=== PATIENT | male | born 1970 | race Caucasian/White ===

== ENCOUNTER → 2017-06-24 | Outpatient (CLI) | payer BC ==
[2017-06-24 09:02] LABS: Basophils # (auto) 0.1 uL; Basophils % (auto) 0.9 % (0.0-2.0); Eosinophils # (auto) 0.4 uL; Eosinophils % (auto) 4.5 % (0.0-7.0); Hematocrit 49.6 % (41.0-53.0); Lymphocytes # (auto) 2.1 uL; Lymphocytes % (auto) 22.2 % (10.0-50.0); Mean Corpuscular Hgb Conc. 34.2 g/dL (32.0-36.0); Mean Corpuscular Volume 93.5 fL (80.0-100.0); Monocytes # (auto) 1.2 uL; Monocytes % (auto) 12.9 % (0.0-12.0); Neutrophils # (auto) 5.5 uL; Neutrophils % (auto) 59.5 % (37.0-80.0); Platelet Count (auto) 307 10^3/uL (140-450); Red Blood Cells 5.31 10^6/uL (4.5-5.90); Red Cell Distribution Width 14.4 % (11.8-14.3); White Blood Cell 9.2 10^3/uL (4.4-10.8)
[2017-06-24 09:53] LABS: Albumin 3.6 g/dL (3.4-5.0); BUN/Creatinine Ratio 13.5; Bilirubin, Total 0.4 mg/dL (0.2-1.0); Calcium 8.6 mg/dL (8.5-10.1); Potassium 4.4 mmol/L (3.5-5.1); Total Protein 7.4 g/dL (6.4-8.2)
== END | disposition home or self-care (01) ==
LOC: LAB 08:00
PROVIDERS: ATTEND Physician Assistant
DX: M54.12 Radiculopathy, cervical region (principal); K62.5 Hemorrhage of anus and rectum; Z83.3 Family history of diabetes mellitus; Z72.0 Tobacco use
CPT/HCPCS: 36415; 80053; 80061; 85025

== ENCOUNTER 2018-06-18 13:59 | Emergency (ER) | payer BC ==
[~2018-06-18] VITALS: Ht 167.6 cm; Wt 84.8 kg
[2018-06-18] MEDS ORDERED: SODIUM CHLORIDE 0.9% 1,000 ML IV ONE (14:41)
[2018-06-18 14:54] LABS: Basophils # (auto) 0.1 uL; Basophils % (auto) 0.6 % (0.0-2.0); Eosinophils # (auto) 0.1 uL; Eosinophils % (auto) 0.8 % (0.0-7.0); Hematocrit 51.4 % (41.0-53.0); Hemoglobin 16.9 g/dL (13.5-17.5); Lymphocytes # (auto) 1.5 uL; Lymphocytes % (auto) 14.4 % (10.0-50.0); Mean Corpuscular Hemoglobin 30.8 pg (28.0-32.0); Mean Corpuscular Volume 93.2 fL (80.0-100.0); Monocytes % (auto) 9.4 % (0.0-12.0); Neutrophils # (auto) 7.9 uL; Neutrophils % (auto) 74.8 % (37.0-80.0); Platelet Count (auto) 332 10^3/uL (140-450); Red Blood Cells 5.51 10^6/uL (4.5-5.90); Red Cell Distribution Width 14.1 % (11.8-14.3); White Blood Cell 10.6 10^3/uL (4.4-10.8)
[2018-06-18 15:00] LABS: Alanine Aminotransferase 59 U/L (16-61); Albumin 3.8 g/dL (3.4-5.0); Anion Gap 8 (5-15); Blood Urea Nitrogen 12 mg/dL (7-18); Calcium 8.9 mg/dL (8.5-10.1); Carbon Dioxide 22 mmol/L (21-32); Chloride 110 mmol/L (98-107); Glucose 113 mg/dL (74-106); Potassium 4.1 mmol/L (3.5-5.1); Sodium 140 mmol/L (136-145)
[2018-06-18 15:05] LABS: Alkaline Phosphatase 97 U/L (45-117); Aspartate Aminotransferase 88 U/L (15-37); BUN/Creatinine Ratio 16.7; Bilirubin, Total 0.2 mg/dL (0.2-1.0); GFR African American 150 mL/min; GFR Non-African American 124 mL/min; Total Protein 7.9 g/dL (6.4-8.2)
[2018-06-18 15:07] VITALS: BP 134/75
[2018-06-18 15:18] LABS: INR 0.88 (0.9-1.15); Partial Thromboplastin Time 29.2 sec (23.78-33.04); Prothrombin Time 9.5 sec (9.27-12.13)
== END 2018-06-18 18:57 | disposition home or self-care (01) ==
LOC: ER 13:59
DX: M54.2 Cervicalgia (principal); F17.210 Nicotine dependence, cigarettes, uncomplicated; F12.10 Cannabis abuse, uncomplicated
CPT/HCPCS: 36415; 70450; 71046; 80053; 82962; 83735; 84443; 84484; 85025; 85379; 85610; 85730; 93005; 94761; 96360; 99284; J7030

== ENCOUNTER → 2018-07-18 | Outpatient (CLI) | payer BC | END | disposition home or self-care (01) | LOC: Rad HDHVI 15:40 | PROVIDERS: ATTEND Internal Medicine Cardiovascular Disease | DX: I07.9 Rheumatic tricuspid valve disease, unspecified (principal) | CPT/HCPCS: 93306 ==

== ENCOUNTER → 2018-08-01 | Outpatient (CLI) | payer BC ==
[~2018-08-01] VITALS: Ht 167.6 cm; Wt 88.5 kg
== END | disposition home or self-care (01) ==
LOC: Rad HDHVI 08:31
PROVIDERS: ATTEND Internal Medicine Cardiovascular Disease
DX: R42 Dizziness and giddiness (principal); E03.9 Hypothyroidism, unspecified; R55 Syncope and collapse; R61 Generalized hyperhidrosis; I49.8 Other specified cardiac arrhythmias; Z79.899 Other long term (current) drug therapy
CPT/HCPCS: 36415; 78452; 83036; 84439; 84443; 93017; 96374; A9500

== ENCOUNTER → 2018-08-22 | Outpatient (CLI) | payer BC ==
[2018-08-22 08:27] LABS: Hematocrit 49.4 % (41.0-53.0); Hemoglobin 16.9 g/dL (13.5-17.5); Mean Corpuscular Hemoglobin 32.1 pg (28.0-32.0); Mean Corpuscular Hgb Conc. 34.3 g/dL (32.0-36.0); Mean Corpuscular Volume 93.6 fL (80.0-100.0); Platelet Count (auto) 311 10^3/uL (140-450); Red Blood Cells 5.28 10^6/uL (4.5-5.90); Red Cell Distribution Width 14.5 % (11.8-14.3); White Blood Cell 15.3 10^3/uL (4.4-10.8)
[2018-08-22 08:34] LABS: Potassium 4.2 mmol/L (3.5-5.1)
[2018-08-22 08:42] LABS: Basophils % (manual) 0 (0.0-2.0); Blast Cells 0; Metamyelocytes % 0; Myelocytes % 0; Promyelocytes % 0; Reactive Lymphocytes 0
[2018-08-22 08:43] LABS: Albumin 3.7 g/dL (3.4-5.0); BUN/Creatinine Ratio 19.3; Bilirubin, Total 0.4 mg/dL (0.2-1.0); Calcium 9.4 mg/dL (8.5-10.1); Total Protein 7.5 g/dL (6.4-8.2)
[2018-08-22 14:53] LABS: Band Neutrophils % (manual) 1; Eosinophils % (manual) 2 (0-7); Lymphocytes % (manual) 19 (10.0-50.0); Monocytes % (manual) 4 (0-12)
== END | disposition home or self-care (01) ==
LOC: LAB 07:34
PROVIDERS: ATTEND Physician Assistant
DX: Z12.5 Encounter for screening for malignant neoplasm of prostate (principal); R07.89 Other chest pain; R00.1 Bradycardia, unspecified; Z72.0 Tobacco use
CPT/HCPCS: 36415; 80053; 80061; 84153; 85007; 85027

== ENCOUNTER 2019-02-16 07:30 | Emergency (ER) | payer BC ==
[~2019-02-16] VITALS: Ht 167.6 cm; Wt 88.5 kg
[2019-02-16] MEDS ORDERED: SODIUM CHLORIDE 0.9% 1,000 ML IVB ONE (07:53)
[2019-02-16] MEDS ORDERED: ONDANSETRON HCL 4 MG/2 ML VIAL IV ONE (08:00)
[2019-02-16] MEDS ORDERED: HYDROmorphone HCL 2 MG/ML VL IV ONE (08:00)
[2019-02-16 08:12] LABS: Basophils # (auto) 0.1 uL; Basophils % (auto) 0.8 % (0.0-2.0); Eosinophils # (auto) 0.2 uL; Eosinophils % (auto) 2.4 % (0.0-7.0); Hematocrit 49.7 % (41.0-53.0); Lymphocytes # (auto) 1.9 uL; Lymphocytes % (auto) 17.9 % (10.0-50.0); Mean Corpuscular Hemoglobin 31.8 pg (28.0-32.0); Mean Corpuscular Hgb Conc. 34.2 g/dL (32.0-36.0); Mean Corpuscular Volume 93.1 fL (80.0-100.0); Monocytes # (auto) 1.3 uL; Monocytes % (auto) 12.4 % (0.0-12.0); Neutrophils # (auto) 6.9 uL; Neutrophils % (auto) 66.5 % (37.0-80.0); Platelet Count (auto) 317 10^3/uL (140-450); Red Blood Cells 5.34 10^6/uL (4.5-5.90); Red Cell Distribution Width 14.2 % (11.8-14.3); White Blood Cell 10.3 10^3/uL (4.4-10.8)
[2019-02-16 08:32] LABS: Albumin 3.8 g/dL (3.4-5.0); Calcium 9.1 mg/dL (8.5-10.1); Magnesium 2.2 mg/dL (1.6-2.6)
[2019-02-16 08:37] LABS: Bilirubin, Total 0.5 mg/dL (0.2-1.0); Total Protein 7.8 g/dL (6.4-8.2)
[2019-02-16 10:37] LABS: Urine Bacteria NONE SEEN /hpf (None Seen); Urine Blood Negative /uL (Negative); Urine Hyaline Cast FEW /lpf (0 - 2); Urine Mucus FEW (None Seen); Urine Specific Gravity 1.016 (1.001-1.035); Urine WBC 1 /hpf (0 - 3)
[2019-02-16 11:29] VITALS: BP 117/64
== END 2019-02-16 11:29 | disposition home or self-care (01) ==
LOC: ER 07:30
DX: R10.13 Epigastric pain (principal); R11.2 Nausea with vomiting, unspecified; I10 Essential (primary) hypertension; F17.210 Nicotine dependence, cigarettes, uncomplicated
CPT/HCPCS: 36415; 74176; 76705; 80053; 81001; 82150; 83690; 83735; 85025; 93005; 96361; 96374; 96375; 99284; J1170; J2405; J7030

== ENCOUNTER 2019-02-28 20:53 | Emergency (ER) | payer BC ==
[~2019-02-28] VITALS: Ht 167.6 cm; Wt 77.6 kg
[2019-02-28 22:14] VITALS: BP 137/82
[2019-03-01 00:23] LABS: Basophils # (auto) 0.1 uL; Basophils % (auto) 0.9 % (0.0-2.0); Eosinophils # (auto) 0.4 uL; Eosinophils % (auto) 3.3 % (0.0-7.0); Hematocrit 51.8 % (41.0-53.0); Hemoglobin 17.5 g/dL (13.5-17.5); Lymphocytes # (auto) 2.2 uL; Lymphocytes % (auto) 19.9 % (10.0-50.0); Mean Corpuscular Hemoglobin 31.6 pg (28.0-32.0); Mean Corpuscular Hgb Conc. 33.8 g/dL (32.0-36.0); Mean Corpuscular Volume 93.5 fL (80.0-100.0); Monocytes # (auto) 1.1 uL; Monocytes % (auto) 10.4 % (0.0-12.0); Neutrophils # (auto) 7.1 uL; Neutrophils % (auto) 65.5 % (37.0-80.0); Platelet Count (auto) 302 10^3/uL (140-450); Red Blood Cells 5.54 10^6/uL (4.5-5.90); Red Cell Distribution Width 13.9 % (11.8-14.3); White Blood Cell 10.9 10^3/uL (4.4-10.8)
[2019-03-01 00:39] LABS: Albumin 3.5 g/dL (3.4-5.0); Anion Gap 7 (5-15); Blood Urea Nitrogen 12 mg/dL (7-18); Calcium 8.8 mg/dL (8.5-10.1); Carbon Dioxide 22 mmol/L (21-32); Chloride 110 mmol/L (98-107); Glucose 104 mg/dL (74-106); Magnesium 2.4 mg/dL (1.6-2.6); Potassium 3.8 mmol/L (3.5-5.1); Sodium 139 mmol/L (136-145)
[2019-03-01 00:41] LABS: Alanine Aminotransferase 27 U/L (16-61); Aspartate Aminotransferase 14 U/L (15-37); GFR African American 122 mL/min; GFR Non-African American 101 mL/min
[2019-03-01 00:46] LABS: Alkaline Phosphatase 93 U/L (45-117); Bilirubin, Total 0.3 mg/dL (0.2-1.0); Total Protein 7.8 g/dL (6.4-8.2)
== END 2019-03-01 02:58 | disposition left against medical advice (07) ==
LOC: ER 20:55
DX: R07.9 Chest pain, unspecified (principal); R10.13 Epigastric pain; R11.2 Nausea with vomiting, unspecified; R19.7 Diarrhea, unspecified; Z53.21 Procedure and treatment not carried out due to patient leaving prior to being seen by health care provider
CPT/HCPCS: 36415; 71045; 74176; 80053; 83735; 84484; 85025; 93005

== ENCOUNTER → 2020-01-20 | Outpatient (CLI) | payer BC ==
[2020-01-20 08:15] LABS: Basophils # (auto) 0.1 10 ^3/uL (0-0.2); Eosinophils # (auto) 0.3 10 ^3/uL (0-0.8); Eosinophils % (auto) 2.3 % (0.0-7.0); Hematocrit 51.7 % (41.0-53.0); Hemoglobin 16.8 g/dL (13.5-17.5); Lymphocytes # (auto) 2.2 10 ^3/uL (0.4-5.4); Lymphocytes % (auto) 18.9 % (10.0-50.0); Mean Corpuscular Hemoglobin 30.1 pg (28.0-32.0); Mean Corpuscular Hgb Conc. 32.6 g/dL (32.0-36.0); Mean Corpuscular Volume 92.4 fL (80.0-100.0); Monocytes # (auto) 1.4 10 ^3/uL (0-1.3); Monocytes % (auto) 12.6 % (0.0-12.0); Neutrophils # (auto) 7.4 10 ^3/uL (1.6-8.6); Neutrophils % (auto) 65.2 % (37.0-80.0); Nucleated Red Blood Cells % 0.1 %; Platelet Count (auto) 331 10^3/uL (140-450); Red Blood Cells 5.59 10^6/uL (4.5-5.90); Red Cell Distribution Width 14.2 % (11.8-14.3); White Blood Cell 11.4 10^3/uL (4.4-10.8)
[2020-01-20 08:42] LABS: Potassium 4.6 mmol/L (3.5-5.1)
[2020-01-20 08:56] LABS: Albumin 3.8 g/dL (3.4-5.0); BUN/Creatinine Ratio 14.3; Bilirubin, Total 0.5 mg/dL (0.2-1.0); Calcium 9.4 mg/dL (8.5-10.1); Total Protein 7.9 g/dL (6.4-8.2)
== END | disposition home or self-care (01) ==
LOC: LAB 07:59
PROVIDERS: ATTEND Physician Assistant
DX: K21.9 Gastro-esophageal reflux disease without esophagitis (principal); I47.1 Supraventricular tachycardia; K92.1 Melena; R91.8 Other nonspecific abnormal finding of lung field; Z72.0 Tobacco use
CPT/HCPCS: 36415; 80053; 80061; 85025

== ENCOUNTER → 2020-02-25 | Outpatient (CLI) | payer BC ==
[2020-02-25 12:25] LABS: Basophils # (auto) 0.1 10 ^3/uL (0-0.2); Basophils % (auto) 0.7 % (0.0-2.0); Eosinophils # (auto) 0.2 10 ^3/uL (0-0.8); Eosinophils % (auto) 2.6 % (0.0-7.0); Hemoglobin 16.7 g/dL (13.5-17.5); Lymphocytes # (auto) 2.1 10 ^3/uL (0.4-5.4); Lymphocytes % (auto) 22.9 % (10.0-50.0); Mean Corpuscular Hemoglobin 32.3 pg (28.0-32.0); Mean Corpuscular Hgb Conc. 35.6 g/dL (32.0-36.0); Mean Corpuscular Volume 90.7 fL (80.0-100.0); Monocytes # (auto) 1.1 10 ^3/uL (0-1.3); Monocytes % (auto) 11.6 % (0.0-12.0); Neutrophils # (auto) 5.8 10 ^3/uL (1.6-8.6); Neutrophils % (auto) 62.2 % (37.0-80.0); Platelet Count (auto) 348 10^3/uL (140-450); Red Blood Cells 5.18 10^6/uL (4.5-5.90); Red Cell Distribution Width 14.2 % (11.8-14.3); White Blood Cell 9.3 10^3/uL (4.4-10.8)
[2020-02-25 12:45] LABS: Calcium 8.9 mg/dL (8.5-10.1); Potassium 4.2 mmol/L (3.5-5.1)
[2020-02-25 12:49] LABS: BUN/Creatinine Ratio 10.7; Bilirubin, Total 0.3 mg/dL (0.2-1.0); Total Protein 8.2 g/dL (6.4-8.2)
== END | disposition home or self-care (01) ==
LOC: LAB 12:02
DX: I47.1 Supraventricular tachycardia (principal); R00.2 Palpitations
CPT/HCPCS: 36415; 80053; 85025

== ENCOUNTER → 2020-06-08 | Day surgery (SDC) | payer BC ==
[2020-06-03 14:58] LABS: Basophils # (auto) 0.1 10 ^3/uL (0-0.2); Basophils % (auto) 1.2 % (0.0-2.0); Eosinophils # (auto) 0.3 10 ^3/uL (0-0.8); Eosinophils % (auto) 2.7 % (0.0-7.0); Hematocrit 47.5 % (41.0-53.0); Hemoglobin 16.3 g/dL (13.5-17.5); Lymphocytes # (auto) 2.1 10 ^3/uL (0.4-5.4); Lymphocytes % (auto) 21.1 % (10.0-50.0); Mean Corpuscular Hemoglobin 31.7 pg (28.0-32.0); Mean Corpuscular Hgb Conc. 34.4 g/dL (32.0-36.0); Mean Corpuscular Volume 92.2 fL (80.0-100.0); Monocytes # (auto) 1.2 10 ^3/uL (0-1.3); Monocytes % (auto) 11.6 % (0.0-12.0); Neutrophils # (auto) 6.3 10 ^3/uL (1.6-8.6); Neutrophils % (auto) 63.4 % (37.0-80.0); Nucleated Red Blood Cells % 0.2 %; Platelet Count (auto) 343 10^3/uL (140-450); Red Blood Cells 5.15 10^6/uL (4.5-5.90); Red Cell Distribution Width 14.4 % (11.8-14.3)
[2020-06-03 15:19] LABS: Urine Bacteria NONE SEEN /hpf (None Seen); Urine Blood Negative /uL (Negative); Urine Specific Gravity 1.026 (1.001-1.035); Urine WBC 1 /hpf (0 - 3)
[2020-06-03 15:28] LABS: Calcium 9.5 mg/dL (8.5-10.1); Potassium 4.5 mmol/L (3.5-5.1)
[2020-06-03 15:31] LABS: BUN/Creatinine Ratio 12.5; Bilirubin, Total 0.3 mg/dL (0.2-1.0); Total Protein 8.3 g/dL (6.4-8.2)
[2020-06-03 15:40] LABS: INR 0.96 (0.9-1.15); Partial Thromboplastin Time 29.1 sec (23.0-31.2)
[~2020-06-08] MED LIST: BUPIVACAINE 0.5% MPF INJ 30ML SDV IJ ONE; BUPR150T18 PO; FENO54TA4 PO; HYDROmorphone HCL 2 MG/ML VL IV PRN; HYDROmorphone HCL 2 MG/ML VL ONE; LIDOCAINE 1% HCL (LOCAL ANESTH.) INJ 20ML MDV ONE; LIDOCAINE 2% (LOCAL ANESTH.) PF 5ml SDV ONE; METO25TA93 PO; MIDAZOLAM HCL 1MG/1ML-2 ML VIAL ONE; MORPHINE SULF(PF) 0.5MG/ML 10ML VIAL ONE; OMEP20TA PO; ONDANSETRON HCL 4 MG/2 ML VIAL IV PRN; ONDANSETRON HCL 4 MG/2 ML VIAL ONE; PROPOFOL 10 MG/ML 20 ML IV ONE; SUCCINYLCHOLINE CHLORIDE 20 MG/ML 10ML VIAL IV ONE; ceFAZolin 1GM/50ML 100 ML IV ONE; fentaNYL CITRATE 100 MCG/2 ML VL ONE
[2020-06-08 12:55] VITALS: BP 147/86
== END | disposition home or self-care (01) ==
LOC: SUR 08:59
PROVIDERS: ATTEND Podiatrist
DX: M19.071 Primary osteoarthritis, right ankle and foot (principal); M20.41 Other hammer toe(s) (acquired), right foot; F41.9 Anxiety disorder, unspecified; F42.9 Obsessive-compulsive disorder, unspecified; E78.00 Pure hypercholesterolemia, unspecified; K21.9 Gastro-esophageal reflux disease without esophagitis; F17.210 Nicotine dependence, cigarettes, uncomplicated; Z79.899 Other long term (current) drug therapy; Z98.890 Other specified postprocedural states; Z20.822 Contact with and (suspected) exposure to COVID-19
CPT/HCPCS: 28112; 28285; 36415; 73620; 80053; 81001; 85025; 85610; 85730; 88305; 88311; J0330; J0690; J1170; J2001; J2250; J2405; J2704; J3010; J3490; U0003; 76000

== ENCOUNTER → 2020-07-11 | Outpatient (CLI) | payer BC ==
[~2020-07-11] MED LIST changes: -BUPIVACAINE 0.5% MPF INJ 30ML SDV IJ ONE; +FENO1CAP3 PO; -HYDROmorphone HCL 2 MG/ML VL IV PRN; -HYDROmorphone HCL 2 MG/ML VL ONE; -LIDOCAINE 1% HCL (LOCAL ANESTH.) INJ 20ML MDV ONE; -LIDOCAINE 2% (LOCAL ANESTH.) PF 5ml SDV ONE; -MIDAZOLAM HCL 1MG/1ML-2 ML VIAL ONE; -MORPHINE SULF(PF) 0.5MG/ML 10ML VIAL ONE; -ONDANSETRON HCL 4 MG/2 ML VIAL IV PRN; -ONDANSETRON HCL 4 MG/2 ML VIAL ONE; -PROPOFOL 10 MG/ML 20 ML IV ONE; -SUCCINYLCHOLINE CHLORIDE 20 MG/ML 10ML VIAL IV ONE; -ceFAZolin 1GM/50ML 100 ML IV ONE; -fentaNYL CITRATE 100 MCG/2 ML VL ONE
[2020-07-11 15:50] VITALS: BP 126/74
[2020-07-11 16:08] VITALS: BP 125/77
== END | disposition home or self-care (01) ==
LOC: Rad HDHVI 15:43
PROVIDERS: ATTEND Internal Medicine Cardiovascular Disease
DX: Z01.818 Encounter for other preprocedural examination (principal); I49.1 Atrial premature depolarization; I47.1 Supraventricular tachycardia
CPT/HCPCS: 71046; 93005; G0463

== ENCOUNTER 2020-07-14 06:57 | Day surgery (SDC) | payer BC ==
[~2020-07-14] VITALS: Ht 167.6 cm; Wt 87.5 kg
[~2020-07-14 06:57] MED LIST changes: -FENO54TA4 PO
[2020-07-14 07:46] LABS: Basophils # (auto) 0.1 10 ^3/uL (0-0.2); Eosinophils # (auto) 0.4 10 ^3/uL (0-0.8); Eosinophils % (auto) 3.9 % (0.0-7.0); Hematocrit 49.3 % (41.0-53.0); Hemoglobin 16.7 g/dL (13.5-17.5); Lymphocytes # (auto) 2.2 10 ^3/uL (0.4-5.4); Lymphocytes % (auto) 24.1 % (10.0-50.0); Mean Corpuscular Hgb Conc. 33.9 g/dL (32.0-36.0); Mean Corpuscular Volume 91.3 fL (80.0-100.0); Monocytes # (auto) 1.2 10 ^3/uL (0-1.3); Monocytes % (auto) 12.9 % (0.0-12.0); Neutrophils # (auto) 5.3 10 ^3/uL (1.6-8.6); Neutrophils % (auto) 58.1 % (37.0-80.0); Nucleated Red Blood Cells % 0.1 %; Platelet Count (auto) 353 10^3/uL (140-450); Red Cell Distribution Width 14.2 % (11.8-14.3); White Blood Cell 9.1 10^3/uL (4.4-10.8)
[2020-07-14 07:53] LABS: BUN/Creatinine Ratio 12.7; Calcium 9.2 mg/dL (8.5-10.1)
[2020-07-14 08:03] LABS: INR 0.97 (0.9-1.15); Partial Thromboplastin Time 28.6 sec (23.0-31.2)
[2020-07-14] MEDS ORDERED: MIDAZOLAM HCL 1MG/1ML-2 ML VIAL ONE (09:09)
[2020-07-14] MEDS ORDERED: fentaNYL CITRATE 100 MCG/2 ML VL ONE (09:09)
[2020-07-14] MEDS ORDERED: LIDOCAINE 2%HCL (LOCAL ANESTH.) INJ 20ML MDV ONE (09:23)
[2020-07-14] MEDS ORDERED: ceFAZolin 1GM/50ML 50 ML IV ONE ×2 (09:47→09:48)
== END 2020-07-14 11:15 | disposition home or self-care (01) ==
LOC: CATH 06:57
PROVIDERS: ATTEND Internal Medicine Cardiovascular Disease
DX: I47.1 Supraventricular tachycardia (principal); I10 Essential (primary) hypertension; E78.5 Hyperlipidemia, unspecified; F17.210 Nicotine dependence, cigarettes, uncomplicated; F41.9 Anxiety disorder, unspecified; Z20.822 Contact with and (suspected) exposure to COVID-19; Z98.890 Other specified postprocedural states; Z79.899 Other long term (current) drug therapy; Z68.31 Body mass index [BMI] 31.0-31.9, adult
CPT/HCPCS: 33285; 36415; 80048; 85025; 85610; 85730; J0690; J7040; U0003; 33282; 99152; J2250

== ENCOUNTER → 2022-06-18 | Outpatient (CLI) | payer BC ==
[2022-06-18 07:36] LABS: Basophils # (auto) 0.1 10 ^3/uL (0-0.2); Basophils % (auto) 0.8 % (0.0-2.0); Eosinophils # (auto) 0.4 10 ^3/uL (0-0.8); Eosinophils % (auto) 5.2 % (0.0-7.0); Hemoglobin 14.5 g/dL (13.5-17.5); Lymphocytes # (auto) 2.2 10 ^3/uL (0.4-5.4); Lymphocytes % (auto) 30.1 % (10.0-50.0); Mean Corpuscular Hemoglobin 30.8 pg (28.0-32.0); Mean Corpuscular Hgb Conc. 34.5 g/dL (32.0-36.0); Mean Corpuscular Volume 89.4 fL (80.0-100.0); Monocytes % (auto) 13.8 % (0.0-12.0); Neutrophils # (auto) 3.7 10 ^3/uL (1.6-8.6); Neutrophils % (auto) 50.1 % (37.0-80.0); Nucleated Red Blood Cells % 0.1 %; Red Cell Distribution Width 14.2 % (11.8-14.3); White Blood Cell 7.4 10^3/uL (4.4-10.8)
[2022-06-18 08:44] LABS: Albumin 3.5 g/dL (3.4-5.0); BUN/Creatinine Ratio 14.8 (10.0-20.0); Bilirubin, Total 0.3 mg/dL (0.2-1.0); Calcium 9.4 mg/dL (8.5-10.1)
== END | disposition home or self-care (01) ==
LOC: LAB 06:42
PROVIDERS: ATTEND Nurse Practitioner Family
DX: Z00.00 Encounter for general adult medical examination without abnormal findings (principal); I10 Essential (primary) hypertension; E78.5 Hyperlipidemia, unspecified
CPT/HCPCS: 36415; 80053; 80061; 84153; 85025

== ENCOUNTER → 2023-02-26 | Outpatient (CLI) | payer BC ==
[2023-02-26 09:06] LABS: Basophils # (auto) 0.1 10 ^3/uL (0-0.2); Basophils % (auto) 1.3 % (0.0-2.0); Eosinophils # (auto) 0.2 10 ^3/uL (0-0.8); Eosinophils % (auto) 3.6 % (0.0-7.0); Hematocrit 49.2 % (41.0-53.0); Hemoglobin 16.4 g/dL (13.5-17.5); Lymphocytes # (auto) 2.1 10 ^3/uL (0.4-5.4); Lymphocytes % (auto) 31.6 % (10.0-50.0); Mean Corpuscular Hemoglobin 29.2 pg (28.0-32.0); Mean Corpuscular Hgb Conc. 33.3 g/dL (32.0-36.0); Mean Corpuscular Volume 87.8 fL (80.0-100.0); Monocytes # (auto) 1.2 10 ^3/uL (0-1.3); Monocytes % (auto) 17.6 % (0.0-12.0); Neutrophils # (auto) 3.1 10 ^3/uL (1.6-8.6); Neutrophils % (auto) 45.9 % (37.0-80.0); Nucleated Red Blood Cells % 0.1 %; Red Cell Distribution Width 14.9 % (11.8-14.3); White Blood Cell 6.7 10^3/uL (4.4-10.8)
[2023-02-26 09:53] LABS: Alanine Aminotransferase 31 U/L (7-40); Alkaline Phosphatase 66 U/L (46-116); Anion Gap 7 (5-15); Calcium 9.5 mg/dL (8.5-10.1); Carbon Dioxide 24 mmol/L (20-30); Chloride 108 mmol/L (98-107); Glucose 98 mg/dL (74-106); Potassium 4.3 mmol/L (3.5-5.1); Sodium 139 mmol/L (136-145)
[2023-02-26 09:54] LABS: BUN/Creatinine Ratio 8.1 (10.0-20.0); Blood Urea Nitrogen 10 mg/dL (9-23); LDL Cholesterol 144 mg/dL (< 100); Triglycerides 207 mg/dL (< 150)
[2023-02-26 09:55] LABS: Albumin 4.7 g/dL (3.2-4.8); Aspartate Aminotransferase 19 U/L (13-40); Cholesterol 202 mg/dL (< 200); HDL Cholesterol 37 mg/dL (40-59)
[2023-02-26 09:56] LABS: Bilirubin, Total 0.5 mg/dL (0.2-1.0); Total Protein 7.5 g/dL (5.7-8.2)
[2023-02-26 10:54] LABS: Prostate Specific Antigen 0.48 ng/mL (0.0-4.0)
[2023-02-26 10:58] LABS: Free T4 (Free Thyroxine) 1.18 ng/dL (0.89-1.76)
== END | disposition home or self-care (01) ==
LOC: LAB 08:50
DX: E78.1 Pure hyperglyceridemia (principal); F41.9 Anxiety disorder, unspecified
CPT/HCPCS: 36415; 80053; 80061; 84153; 84439; 84443; 85025

== ENCOUNTER → 2023-04-16 | Outpatient (CLI) | payer BC ==
[~2023-04-16] MED LIST changes: +BUPR200T2 PO; +HYDR50TA69 PO
[2023-04-16 12:43] VITALS: BP 123/87; PULSE 58; RESP 16; O2SAT 95
[2023-04-16 12:54] VITALS: BP 150/79; PULSE 63; RESP 16; O2SAT 95
== END | disposition home or self-care (01) ==
LOC: CHF HDHVI 12:38
PROVIDERS: ATTEND Internal Medicine Cardiovascular Disease
DX: Z01.818 Encounter for other preprocedural examination (principal); I47.10 Supraventricular tachycardia, unspecified; R00.2 Palpitations
CPT/HCPCS: 93005; G0463

== ENCOUNTER 2023-04-18 07:16 | Day surgery (SDC) | payer BC ==
[2023-04-16 15:00] LABS: Basophils # (auto) 0.1 10 ^3/uL (0-0.2); Basophils % (auto) 0.7 % (0.0-2.0); Eosinophils # (auto) 0.3 10 ^3/uL (0-0.8); Eosinophils % (auto) 2.5 % (0.0-7.0); Hematocrit 49.1 % (41.0-53.0); Hemoglobin 16.3 g/dL (13.5-17.5); Lymphocytes # (auto) 2.5 10 ^3/uL (0.4-5.4); Lymphocytes % (auto) 22.7 % (10.0-50.0); Mean Corpuscular Hemoglobin 29.2 pg (28.0-32.0); Mean Corpuscular Hgb Conc. 33.2 g/dL (32.0-36.0); Monocytes # (auto) 1.4 10 ^3/uL (0-1.3); Monocytes % (auto) 12.6 % (0.0-12.0); Neutrophils # (auto) 6.9 10 ^3/uL (1.6-8.6); Neutrophils % (auto) 61.5 % (37.0-80.0); Nucleated Red Blood Cells % 0.1 %; Red Blood Cells 5.58 10^6/uL (4.5-5.90); Red Cell Distribution Width 15.6 % (11.8-14.3); White Blood Cell 11.2 10^3/uL (4.4-10.8)
[2023-04-16 15:01] LABS: Chloride 106 mmol/L (98-107); Potassium 4.3 mmol/L (3.5-5.1); Sodium 138 mmol/L (136-145)
[2023-04-16 15:02] LABS: Anion Gap 6 (5-15); Carbon Dioxide 26 mmol/L (20-30)
[2023-04-16 15:07] LABS: BUN/Creatinine Ratio 7.6 (10.0-20.0); Blood Urea Nitrogen 9 mg/dL (9-23); Glucose 91 mg/dL (74-106); INR 1.01 (0.9-1.15); Partial Thromboplastin Time 30.9 SEC (24.5-34.5); Prothrombin Time 10.6 sec (9.3-11.8)
[~2023-04-18] VITALS: Ht 167.6 cm; Wt 90.7 kg
[~2023-04-18 07:16] MED LIST changes: -BUPR150T18 PO
[2023-04-18] MEDS: LIDOCAINE 2%HCL (LOCAL ANESTH.) INJ 20ML MDV ONE (09:10)
[2023-04-18] MEDS: fentaNYL CITRATE 100 MCG/2 ML VL IV ONE (09:10)
[2023-04-18] MEDS: MIDAZOLAM HCL 2MG/2ML 2ml VIAL (1mg/ml) IV ONE (09:10)
[2023-04-18] MEDS ORDERED: HYDROmorphone HCL 2 MG/ML VL/or syr ONE (09:13)
[2023-04-18 09:15] VITALS: BP 109/79; PULSE 57; RESP 12; O2SAT 98
[2023-04-18 09:31] VITALS: BP 120/86; PULSE 58; RESP 12; O2SAT 99
[2023-04-18 09:46] VITALS: BP 115/81; PULSE 58; RESP 12; O2SAT 98
[2023-04-18 10:02] VITALS: BP 116/74; PULSE 59; RESP 13; O2SAT 99
== END 2023-04-18 10:20 | disposition home or self-care (01) ==
LOC: CATH 07:16
PROVIDERS: ATTEND Internal Medicine Cardiovascular Disease
DX: Z45.09 Encounter for adjustment and management of other cardiac device (principal); R00.2 Palpitations; I10 Essential (primary) hypertension; R07.89 Other chest pain; Z79.899 Other long term (current) drug therapy
CPT/HCPCS: 33286; 36415; 80048; 85025; 85610; 85730; J2250; J3010; 99152

== ENCOUNTER → 2024-02-28 | Outpatient (CLI) | payer BC ==
[2024-02-28 09:16] LABS: Basophils # (auto) 0.1 10 ^3/uL (0-0.2); Eosinophils # (auto) 0.3 10 ^3/uL (0-0.8); Eosinophils % (auto) 3.7 % (0.0-7.0); Hematocrit 47.1 % (41.0-53.0); Hemoglobin 16.4 g/dL (13.5-17.5); Lymphocytes # (auto) 2.1 10 ^3/uL (0.4-5.4); Lymphocytes % (auto) 28.2 % (10.0-50.0); Mean Corpuscular Hemoglobin 31.4 pg (28.0-32.0); Mean Corpuscular Hgb Conc. 34.8 g/dL (32.0-36.0); Mean Corpuscular Volume 90.3 fL (80.0-100.0); Monocytes % (auto) 13.7 % (0.0-12.0); Neutrophils % (auto) 53.4 % (37.0-80.0); Nucleated Red Blood Cells % 0.2 %; Platelet Count (auto) 340 10^3/uL (140-450); Red Blood Cells 5.22 10^6/uL (4.5-5.90); Red Cell Distribution Width 14.7 % (11.8-14.3); White Blood Cell 7.5 10^3/uL (4.4-10.8)
[2024-02-28 09:17] LABS: INR 0.99 (0.9-1.15); Prothrombin Time 10.5 sec (9.3-11.8)
[2024-02-28 10:17] LABS: Alanine Aminotransferase 27 U/L (7-40); Albumin 4.4 g/dL (3.2-4.8); Alkaline Phosphatase 70 U/L (46-116); Anion Gap 6 (5-15); Aspartate Aminotransferase 18 U/L (13-40); BUN/Creatinine Ratio 9.8 (10.0-20.0); Blood Urea Nitrogen 12 mg/dL (9-23); Calcium 9.8 mg/dL (8.7-10.4); Carbon Dioxide 27 mmol/L (20-31); Chloride 106 mmol/L (98-107); Glucose 103 mg/dL (74-106); Potassium 4.3 mmol/L (3.5-5.1); Sodium 139 mmol/L (136-145)
[2024-02-28 10:18] LABS: Bilirubin, Total 0.5 mg/dL (0.2-1.0); HDL Cholesterol 45 mg/dL (40-59); Total Protein 7.1 g/dL (5.7-8.2)
[2024-02-28 10:29] LABS: Cholesterol 225 mg/dL (< 200); LDL Cholesterol 164 mg/dL (< 100); Triglycerides 181 mg/dL (< 150)
[2024-02-28 12:22] LABS: Urine Bacteria None Seen /hpf (None Seen)
[2024-02-28 12:41] LABS: Urine Blood Negative /uL (Negative); Urine Clarity Clear (Clear); Urine Color Yellow (Yellow); Urine Protein, UAD Negative (Negative); Urine Specific Gravity 1.022 (1.001-1.035); Urine Squamous Epithelial Cell None Seen /hpf (<5); Urine Urobilinogen Normal (Negative); Urine WBC 1 /hpf (0 - 3); Urine pH 5.5 (5.0-9.0)
== END | disposition home or self-care (01) ==
LOC: LAB 08:36
PROVIDERS: ATTEND Nurse Practitioner Family
DX: I10 Essential (primary) hypertension (principal); E78.5 Hyperlipidemia, unspecified; R35.1 Nocturia; F41.9 Anxiety disorder, unspecified
CPT/HCPCS: 36415; 80053; 80061; 81001; 84153; 84443; 85025; 85610; 87086

== ENCOUNTER → 2024-04-03 | Day surgery (SDC) | payer BC ==
[2024-03-27 15:11] LABS: Urine Bacteria None Seen /hpf (None Seen)
[2024-03-27 15:23] LABS: Basophils # (auto) 0 10 ^3/uL (0-0.2); Basophils % (auto) 0.1 % (0.0-2.0); Eosinophils # (auto) 0.3 10 ^3/uL (0-0.8); Eosinophils % (auto) 3.8 % (0.0-7.0); Hematocrit 46.9 % (41.0-53.0); Hemoglobin 15.8 g/dL (13.5-17.5); Lymphocytes # (auto) 1.9 10 ^3/uL (0.4-5.4); Lymphocytes % (auto) 26.8 % (10.0-50.0); Mean Corpuscular Hemoglobin 30.5 pg (28.0-32.0); Mean Corpuscular Hgb Conc. 33.7 g/dL (32.0-36.0); Mean Corpuscular Volume 90.5 fL (80.0-100.0); Monocytes % (auto) 14.1 % (0.0-12.0); Neutrophils # (auto) 3.9 10 ^3/uL (1.6-8.6); Neutrophils % (auto) 55.2 % (37.0-80.0); Nucleated Red Blood Cells % 0.5 %; Platelet Count (auto) 345 10^3/uL (140-450); Red Blood Cells 5.18 10^6/uL (4.5-5.90); Red Cell Distribution Width 14.7 % (11.8-14.3); White Blood Cell 7.1 10^3/uL (4.4-10.8)
[2024-03-27 15:31] LABS: INR 0.96 (0.9-1.15); Partial Thromboplastin Time 27.3 SEC (24.5-34.5); Prothrombin Time 10.2 sec (9.3-11.8)
[2024-03-27 16:10] LABS: Urine Blood Negative /uL (Negative); Urine Clarity Clear (Clear); Urine Color Light-Yellow (Yellow); Urine Mucus FEW (None Seen); Urine Protein, UAD Negative (Negative); Urine Specific Gravity 1.024 (1.001-1.035); Urine Squamous Epithelial Cell None Seen /hpf (<5); Urine Urobilinogen 2 mg/dL (Negative); Urine WBC 1 /HPF (0-3)
[2024-03-27 16:53] LABS: Alanine Aminotransferase 24 U/L (7-40); Albumin 4.7 g/dL (3.2-4.8); Alkaline Phosphatase 68 U/L (46-116); Anion Gap 10 (5-15); Aspartate Aminotransferase 15 U/L (13-40); BUN/Creatinine Ratio 11.4 (10.0-20.0); Blood Urea Nitrogen 13 mg/dL (9-23); Calcium 9.9 mg/dL (8.7-10.4); Carbon Dioxide 21 mmol/L (20-31); Potassium 3.8 mmol/L (3.5-5.1); Sodium 141 mmol/L (136-145)
[2024-03-27 16:54] LABS: Total Protein 7.1 g/dL (5.7-8.2)
[2024-03-27 16:55] LABS: Bilirubin, Total 0.2 mg/dL (0.2-1.0); Chloride 110 mmol/L (98-107); Glucose 111 mg/dL (74-106)
[~2024-04-03] VITALS: Ht 167.6 cm; Wt 87.5 kg
[~2024-04-03] MED LIST changes: +ALPR0.254 PO; +DexAMETHasone SOD PHOS 10MG/1ML VIAL INJ ONE; +IBUP-1456 PO; +KETAMINE 50mg/ML 1ml syringe ONE; +LIDOCAINE VISCOUS 2% 15ML UD ONE; +MEPERIDINE HCL (25 MG/ML) 1ML VIAL ONE; +MIDAZOLAM HCL 2MG/2ML 2ml VIAL (1mg/ml) ONE; +PROPOFOL 10 MG/ML 20 ML IV ONE; +fentaNYL CITRATE 100 MCG/2 ML VL ONE
[2024-04-03 13:05] VITALS: PULSE 69; RESP 16; O2SAT 99
--- NOTE | 2024-04-03 13:06 | DVHOP2 ---
Operative Report DATE OF OPERATION: 04/03/24 PROCEDURE: Colonoscopy with cold biopsy. PREOPERATIVE INDICATION: The patient is a 53 -year-old male undergoing colonoscopy for colon cancer screening POSTOPERATIVE DIAGNOSES: 1. There was a tiny 1-2 mm benign-appearing hyperplastic type rectal excrescence that was removed by cold biopsy forceps and another small inflammatory rectal polyp that was removed by cold biopsy forceps 2. Trace internal hemorrhoids otherwise normal examination up to the cecum and terminal ileum PROCEDURE PERFORMED BY: Ismael Acosta M.D. SCOPE: Olympus videocolonoscope. ASA CLASS: 3. PREOPERATIVE MEDICATIONS: Dr. Helen Gee PROCEDURE IN DETAIL: After obtaining an informed consent, the patient was placed on left lateral decubitus position. He was then sedated with the above medications. A rectal examination was performed that was normal. The colonoscope was then passed through the anus into the rectosigmoid and through the descending, transverse, and ascending colon up to the cecum with visualization of the appendiceal orifice, base of the cecum and the ileocecal valve. The colonoscope was then withdrawn. The distal 5 cm of the terminal ileum were normal No masses or colitis was noted. There was no clear-cut diverticular disease. In the rectum there was one superficial inflammatory type polyp that was removed by cold biopsy forceps On retroflexion there was another 1-2 mm hyperplastic benign-appearing rectal excrescence that was also removed by cold biopsy forceps Patient had trace internal hemorrhoids. The patient tolerated the procedure well without difficulty. WITHDRAWAL TIME: 7 minute QUALITY OF THE PREP: Nikolski Bowel Prep score: 9. COMPLICATIONS : None SPECIMENS: Rectal biopsy x2, one hyperplastic polyp and one inflammatory polypoid tissue DISPOSITION: Stable D/C to home PLAN: 1. Repeat colonoscopy base on biopsy result likely in 7-10 years 2. Resume GI soft diet increase fluid and fiber intake 3. Outpatient follow up with me in 4-6 weeks to review results and discuss further management ISMAEL ACOSTA MD Apr 03, 2024 13:06
--- NOTE | 2024-04-03 13:08 | DVHOP2 ---
Operative Report DATE OF OPERATION: 04/03/24 PROCEDURE: Upper Endoscopy with biopsy. PREOPERATIVE INDICATION: The patient is a 53 -year-old male undergoing endoscopy for heartburn and dyspepsia POSTOPERATIVE DIAGNOSES: 1. Patient had slightly irregular squamocolumnar junction with grade a erosive esophagitis and GE junction biopsies were obtained 2. Mild antral gastritis PROCEDURE PERFORMED BY: Ismael Acosta GI NURSE: Haider SCOPE: Olympus videoendoscope. ASA CLASS: 3. PREOPERATIVE MEDICATIONS: Dr. Álvaro Gee PROCEDURE IN DETAIL: After obtaining an informed consent, the patient was placed on left lateral decubitus position. The patient was then sedated with the above medications. A bite block was placed between his teeth. The endoscope was then passed through the oropharynx, into the esophagus, and through the stomach and pylorus up to the second and third part of the duodenum. The endoscope was then withdrawn. The 2nd and 3rd part of the duodenal and the duodenal bulb were normal. Duodenal biopsies were obtained The pre-pyloric area and antrum showed mild gastritis. Gastric biopsies were obtained. On retroflexion the fundus cardia and angularis were normal. The endoscope was then straightened withdrawn into the distal esophagus. Patient had no significant hiatal hernia but there was a slightly irregular squamocolumnar junction and grade A to B erosive esophagitis from which biopsies were obtained The remaining distal and proximal esophagus and oropharynx were unremarkable The patient tolerated the procedure well without difficulty. COMPLICATIONS : None SPECIMENS: Duodenal biopsies Gastric biopsies GE junction biopsies DISPOSITION: Stable D/C to home PLAN: 1. Await for biopsy result 2. Will place pt on Protonix 40 mg p.o. daily or as needed 3. Lifestyle and dietary modifications for GERD 4. Resume GI soft diet advance as tolerated 5. Outpatient follow up with me in 4-6 weeks to review results and discuss further management ISMAEL ACOSTA MD Apr 03, 2024 13:08
[2024-04-03 13:20] VITALS: PULSE 75; RESP 14; O2SAT 96
[2024-04-03 13:50] VITALS: BP 131/88; PULSE 71; RESP 16; O2SAT 98
== END | disposition home or self-care (01) ==
LOC: GI 10:02
PROVIDERS: ATTEND Internal Medicine Gastroenterology
DX: R19.5 Other fecal abnormalities (principal); K62.1 Rectal polyp; K29.50 Unspecified chronic gastritis without bleeding; B96.81 Helicobacter pylori [H. pylori] as the cause of diseases classified elsewhere; K64.8 Other hemorrhoids; K22.10 Ulcer of esophagus without bleeding; K21.9 Gastro-esophageal reflux disease without esophagitis; R12 Heartburn; I10 Essential (primary) hypertension; F41.9 Anxiety disorder, unspecified; E66.9 Obesity, unspecified; Z68.32 Body mass index [BMI] 32.0-32.9, adult; Z79.899 Other long term (current) drug therapy; Z98.890 Other specified postprocedural states
CPT/HCPCS: 36415; 43239; 45380; 80053; 81001; 85025; 85610; 85730; 88305; 88312; 88342; J1100; J2175; J2250; J2704; J3010; J7030

== ENCOUNTER → 2024-06-22 | Outpatient (CLI) | payer BC ==
[~2024-06-22] MED LIST changes: -DexAMETHasone SOD PHOS 10MG/1ML VIAL INJ ONE; -KETAMINE 50mg/ML 1ml syringe ONE; -LIDOCAINE VISCOUS 2% 15ML UD ONE; -MEPERIDINE HCL (25 MG/ML) 1ML VIAL ONE; -MIDAZOLAM HCL 2MG/2ML 2ml VIAL (1mg/ml) ONE; -PROPOFOL 10 MG/ML 20 ML IV ONE; -fentaNYL CITRATE 100 MCG/2 ML VL ONE
== END | disposition home or self-care (01) ==
LOC: LAB 15:31
PROVIDERS: ATTEND Urology
DX: N40.0 Benign prostatic hyperplasia without lower urinary tract symptoms (principal)
CPT/HCPCS: 84153

== ENCOUNTER → 2024-07-02 | Outpatient (CLI) | payer BC ==
[~2024-07-02] MED LIST changes: +ALBUTEROL SULF 2.5 MG/0.5ML(0.5%) NEB SOLN ONE; +IBU600T PO; +PANT40TA2 PO
== END | disposition home or self-care (01) ==
LOC: RT 13:17
PROVIDERS: ATTEND Internal Medicine Pulmonary Disease
DX: J41.1 Mucopurulent chronic bronchitis (principal)
CPT/HCPCS: 94060; 94618; 94727; 94729

== ENCOUNTER 2024-07-06 06:07 | Emergency (ER) | payer BC ==
[~2024-07-06] VITALS: Ht 175.3 cm; Wt 95.8 kg
[~2024-07-06 06:07] MED LIST changes: -ALBUTEROL SULF 2.5 MG/0.5ML(0.5%) NEB SOLN ONE; -IBU600T PO; -PANT40TA2 PO
--- NOTE | 2024-07-06 06:26 | ED.PDOC ---
GI ASSESSMENT HPI Comments 53 year old male presents to the ED with a chief complaint of abdominal pain onset today (07/06/24) around 01:00. Patient woke up this morning around 01:00 experiencing RUQ pain as well as nausea, rates pain 7/10. PMHx HTN. Denies vomiting, diarrhea, constipation, chest pain, shortness of breath, dysuria, hematuria, dizziness, fever, chills. No other symptoms or modifying factors present at this time. Chief Complaint: Abdominal Pain Time Seen by MD: 06:15 Primary Care Provider: GREGORY BHANDARI Reviewed Notes: Medications, Allergies Allergies: Coded Allergies: No Known Drug Allergy (Verified Allergy, Unknown, 07/11/20) Home Meds Active Scripts Pantoprazole Sodium Sesquihydr (Protonix) 40 Mg Tab, 40 MG PO DAILY for 7 Days, #7 TAB Prov:HANK ELISE MD 07/06/24 Ibuprofen Micronized (MOTRIN TABLET) 600 Mg Tb, 600 MG PO TID PRN for 5 Days, #15 TAB *Black box warning-NSAIDS can increase risk of PR & hypertension, GI irritation, ulceration, bleed, perferation. Do not use post cardiac surgery. Use short duration/lowest effective dose. Prov:HANK ELISE MD 07/06/24 Reported Medications Ibuprofen (Ibuprofen) 800 Mg Tab, 800 MG PO Q8HP, TAB 03/30/24 Alprazolam (Alprazolam) 0.25 Mg Tab, 0.25 MG PO TIDPRN PRN for ANXIETY, TAB 03/30/24 Hydroxyzine Hcl (Hydroxyzine Hcl) 50 Mg Tab, 50 MG PO TID for 30 Days, MG 04/16/23 Bupropion Hcl (Wellbutrin Sr) 200 Mg Tab, 300 MG PO DAILY, TAB 04/16/23 Fenofibrate (FENOFIBRATE) 43 Mg Cap, 43 MG PO DAILY 07/11/20 Omeprazole (Gnp Omeprazole) 20 Mg Tab, 40 MG PO DAILY, TAB 06/03/20 Metoprolol Succinate (Metoprolol Succinate Er) 25 Mg Tab, 1 TAB PO DAILY 06/03/20 Information Source: Patient Mode of Arrival: Ambulatory Timing: Hours Duration: Since onset Prehospital treatment: None Quality: Sharp Vomitus: None Severity: Moderate Recent: None Recent Hx of: None Pain Location: RUQ Modifying Factors: Nothing Associated sign and symptoms: Nausea, Abdominal Pain Past Medical History PAST MEDICAL HISTORY: HTN Surgical History: Denies all surgeries Family History Family History: Reviewed,noncontributory to illness, No family hx of Cancer, No family hx of DM, No family hx of Heart wyatt, No family hx of HTN, No family hx ofKidney wyatt, No family hx of Liver wyatt, No family hx of Lung wyatt, No family hx of Stroke Social History Smoker: Cigarettes, Greater Than 1 Pack/Day, Other Alcohol: Occasionally Drugs: Marijuana Lives In: Home Constitutional: denies: chills, diaphoresis, fatigue, fever, malaise, sweats, weakness, others EENTM: denies: blurred vision, double vision, ear bleeding, ear discharge, ear drainage, ear pain, ear ringing, eye pain, eye redness, hearing loss, mouth pain, mouth swelling, nasal discharge, nose bleeding, nose congestion, nose pain, photophobia, tearing, throat pain, throat swelling, voice changes, others Respiratory: denies: cough, hemoptysis, orthopnea, SOB at rest, shortness of breath, SOB with excertion, stridor, wheezing, others Cardiovascular: denies: chest pain, dizzy spells, diaphoresis, Dyspnea on exertion, edema, irregular heart beat, left arm pain, lightheadedness, palpitations, PND, syncope, others Gastrointestinal: reports: abdominal pain, nausea; denies: abdomen distended, blood streaked bowels, constipated, diarrhea, dysphagia, difficulty swallowing, hematemesis, melena, poor appetite, poor fluid intake, rectal bleeding, rectal pain, vomiting, others Genitourinary: denies: burning, dysuria, flank pain, frequency, hematuria, incontinence, penile discharge, penile sore, pain, testicle pain, testicle swelling, urgency, others Neurological: denies: dizziness, fainting, headache, left sided numbness, left sided weakness, numbness, paresthesia, pre-existing deficit, right sided numbness, right sided weakness, seizure, speech problems, tingling, tremors, weakness, others Musculoskeletal: denies: back pain, gout, joint pain, joint swelling, muscle pain, muscle stiffness, neck pain, others Integumetry: denies: bruises, change in color, change in hair/nails, dryness, laceration, lesions, lumps, rash, wounds, others Allergic/Immunocompromised: denies: Difficulty Healing, Frequent Infections, Hives, Itching, others Hematologic/Lymphatic: denies: anemia, blood clots, easy bleeding, easy bruising, swollen glands, others Endocrine: denies: excessive hunger, excessive sweating, excessive thirst, excessive urination, flushing, intolerance to cold, intolerance to heat, unexplained weight gain, unexplained weight loss, others Psychiatric: denies: anxiety, bipolar disorder, depression, hopeless, panic disorder, schizophrenia, sleepless, suicidal, others All Other Systems: Reviewed and Negative Physical Exam General Appearance: Moderate Distress, Normal HEENT: Normal ENT Inspection, Pharynx Normal, TMs Normal Neck: Full Range of Motion, Non-Tender, Normal, Normal Inspection Respiratory: Chest Non-Tender, Lungs Clear, No Accessory Muscle Use, No Respiratory Distress, Normal Breath Sounds Cardiovascular: No Edema, No JVD, No Murmur, No Gallop, Normal Peripheral Pulses, Regular Rate/Rhythm Breast Exam: Deferred Gastrointestinal: Diffuse, No Organomegaly, No Pulsatile Mass, Normal Bowel Sounds, Soft Genitalia: Deferred Pelvic: Deferred Rectal: Deferred Extremities: No calf tenderness, Normal capillary refill, Normal inspection, Normal range of motion, Non-tender, No pedal edema Musculoskeletal : Apperance: Normal Neurologic: Alert, principal developer II-XII nml as Tested, No Motor Deficits, Normal Affect, Normal Mood, No Sensory Deficits Cerebellar Function: Normal Reflexes: Normal Skin: Dry, Normal Color, Warm Peripheral Pulses: 3+ Radial (R), 3+ Radial (L) Lymphatic: No Adenopathy Was a procedure done? Was a procedure done?: No GI differential Dx Differential Diagnosis: Constipation, Diverticular disease, Esophagitis, Gastritis/PUD, Gastroenteritis X-Ray, Labs, Meds, VS Vital Signs Date Time Temp Pulse Resp B/P (MAP) Pulse Ox O2 Delivery O2 Flow Rate FiO2 07/06/24 08:05 53 18 96 Room Air* 0 21 07/06/24 08:05 97.7 53 18 144/79 (100) 96 97.7 07/06/24 06:20 97.3 68 18 151/93 (112) 98 97.3 Lab Test 07/06/24 06:38 07/06/24 06:15 Range/Units White Blood Count 10.1 4.4-10.8 10^3/uL Red Blood Count 5.02 4.5-5.90 10^6/uL Hemoglobin 15.2 13.5-17.5 g/dL Hematocrit 44.8 41.0-53.0 % Mean Corpuscular Volume 89.3 80.0-100.0 fL Mean Corpuscular Hemoglobin 30.3 28.0-32.0 pg Mean Corpuscular Hemoglobin Concent 34.0 32.0-36.0 g/dL Red Cell Distribution Width 14.4 H 11.8-14.3 % Platelet Count 349 140-450 10^3/uL Mean Platelet Volume 7.4 6.9-10.8 fL Neutrophils (%) (Auto) 63.9 37.0-80.0 % Lymphocytes (%) (Auto) 19.8 10.0-50.0 % Monocytes (%) (Auto) 12.9 H 0.0-12.0 % Eosinophils (%) (Auto) 2.6 0.0-7.0 % Basophils (%) (Auto) 0.8 0.0-2.0 % Neutrophils # (Auto) 6.5 1.6-8.6 10 ^3/uL Lymphocytes # (Auto) 2.0 0.4-5.4 10 ^3/uL Monocytes # (Auto) 1.3 0-1.3 10 ^3/uL Eosinophils # (Auto) 0.3 0-0.8 10 ^3/uL Basophils # (Auto) 0.1 0-0.2 10 ^3/uL Nucleated Red Blood Cells 0.1 % Sodium Level 141 136-145 mmol/L Potassium Level 4.2 3.5-5.1 mmol/L Chloride Level 110 H 98-107 mmol/L Carbon Dioxide Level 22 20-31 mmol/L Anion Gap 9 5-15 Blood Urea Nitrogen 13 9-23 mg/dL Creatinine 1.09 0.700-1.30 mg/dL Glomerular Filtration Rate Calc 81 >90 mL/min BUN/Creatinine Ratio 11.9 10.0-20.0 Serum Glucose 124 H 74-106 mg/dL Calcium Level 9.9 8.7-10.4 mg/dL Lipase 43 12-53 U/L Urine Color Light-yellow Yellow Urine Clarity Clear Clear Urine pH 5.0 5.0-9.0 Urine Specific [place] 1.025 1.001-1.035 Urine Protein Negative Negative Urine Ketones Negative Negative Urine Blood Negative Negative /uL Urine Nitrite Negative Negative Urine Bilirubin Negative Negative Urine Urobilinogen Normal Negative mg/dL Urine Leukocyte Esterase Negative Negative /uL Urine RBC <1 0 - 3 /hpf Urine Microscopic WBC 1 0-3 /HPF Urine Squamous Epithelial Cells None seen <5 /hpf Urine Bacteria None seen None Seen /hpf Urine Mucus Few None Seen Urine Glucose Normal Normal mg/dL Current Medications Medications (Trade) Dose Ordered Sig/Js Route Start Time Stop Time Status Last Admin Sodium Chloride 1,000 ml @ 1,000 mls/hr Q1H ONCE IVB 07/06/24 06:30 07/06/24 07:29 DC 07/06/24 08:09 Ondansetron HCl (Zofran Po) 4 mg ONCE ONCE PO 07/06/24 06:30 07/06/24 06:31 DC 07/06/24 08:09 Ketorolac Tromethamine (Toradol Injection) 30 mg ONCE ONCE IV 07/06/24 06:30 07/06/24 06:31 DC 07/06/24 08:09 Patient alert. Complaining of abdominal pain. History of kidney stone. Vitals stable. Answering questions. Abdomen is soft diffusely nontender. He has been having good bowel movement. Reviewed his history. Explained to the patient. Continue monitoring. CT scan of the abdomen reviewed does not show any acute process. Has gallstones. Possibly will need outpatient CT chest to check the nodule. Referred to a pulmonary. WBC within normal limits. Hemoglobin within normal limits. Patient is aware of all the findings. Was given prescription of Motrin Protonix. Was told to follow up with his primary care physician. Was told to come back if there is any problem. Time of 1ST Reevaluation: 06:45 Reevaluation 1ST: Unchanged Time of 2ND Reevaluation: 09:10 Reevaluation 2ND: Improved Patient Education/Counseling: Diagnosis, Treatment, Prognosis Family Education/Counseling: No Family Present Additional Information The following tests were ordered, and results were reviewed by me: CBC, LIPASE, CT ABD/PEL, BMP I reviewed and agreed with the following test results read by other providers: CT ABD/PEL I discussed treatment and results with medical personnel and: patient Comprehensive systems review obtained and negative except for what is stated in the HPI. Departure 1 Departure Time of Disposition: 06:39 Impression: Primary Impression: Acute abdominal pain Additional Impressions: Gallstone Qualified Codes: K80.20 - Calculus of gallbladder without cholecystitis without obstruction Pulmonary nodule Disposition: HOME / SELF CARE / HOMELESS Condition: Good e-Prescriptions Pantoprazole Sodium Sesquihydr (Protonix) 40 Mg Tab 40 MG PO DAILY for 7 Days, #7 TAB Prov: HANK ELISE MD 07/06/24 Ibuprofen Micronized (MOTRIN TABLET) 600 Mg Tb 600 MG PO TID PRN for 5 Days, #15 TAB *Black box warning-NSAIDS can increase risk of PR & hypertension, GI irritation, ulceration, bleed, perferation. Do not use post cardiac surgery. Use short duration/lowest effective dose. Prov: HANK ELISE MD 07/06/24 Discharged With: Self Critical Care Note Critical Care Time?: No Stability Stability form required: No Heart Score Heart Score: Heart Score Response (Comments) Value History N/A 0 EKG N/A 0 Age N/A 0 Risk Factors N/A 0 Troponin N/A 0 Total 0 I personally scribed for HANK ELISE MD ([email or web address]) on 07/06/24 at 06:26. Electronically submitted by Rosalinda Marsh ([email or web address]). I personally scribed for HANK ELISE MD ([email or web address]) on 07/06/24 at 06:28. Electronically submitted by Rosalinda Marsh ([email or web address]). HANK ELISE MD July 06, 2024 06:26
[2024-07-06 06:44] LABS: Urine Bacteria None Seen /hpf (None Seen)
[2024-07-06 06:51] LABS: Basophils # (auto) 0.1 10 ^3/uL (0-0.2); Basophils % (auto) 0.8 % (0.0-2.0); Eosinophils # (auto) 0.3 10 ^3/uL (0-0.8); Eosinophils % (auto) 2.6 % (0.0-7.0); Hematocrit 44.8 % (41.0-53.0); Hemoglobin 15.2 g/dL (13.5-17.5); Lymphocytes % (auto) 19.8 % (10.0-50.0); Mean Corpuscular Hemoglobin 30.3 pg (28.0-32.0); Mean Corpuscular Volume 89.3 fL (80.0-100.0); Monocytes # (auto) 1.3 10 ^3/uL (0-1.3); Monocytes % (auto) 12.9 % (0.0-12.0); Neutrophils # (auto) 6.5 10 ^3/uL (1.6-8.6); Neutrophils % (auto) 63.9 % (37.0-80.0); Nucleated Red Blood Cells % 0.1 %; Platelet Count (auto) 349 10^3/uL (140-450); Red Blood Cells 5.02 10^6/uL (4.5-5.90); Red Cell Distribution Width 14.4 % (11.8-14.3); White Blood Cell 10.1 10^3/uL (4.4-10.8)
[2024-07-06 06:52] LABS: Urine Blood Negative /uL (Negative); Urine Clarity Clear (Clear); Urine Color Light-Yellow (Yellow); Urine Mucus FEW (None Seen); Urine Protein, UAD Negative (Negative); Urine Specific Gravity 1.025 (1.001-1.035); Urine Squamous Epithelial Cell None Seen /hpf (<5); Urine Urobilinogen Normal (Negative); Urine WBC 1 /HPF (0-3)
[2024-07-06 07:01] LABS: Potassium 4.2 mmol/L (3.5-5.1); Sodium 141 mmol/L (136-145)
[2024-07-06 07:02] LABS: Anion Gap 9 (5-15); Calcium 9.9 mg/dL (8.7-10.4); Carbon Dioxide 22 mmol/L (20-31)
[2024-07-06 07:05] LABS: Chloride 110 mmol/L (98-107)
[2024-07-06 07:07] LABS: BUN/Creatinine Ratio 11.9 (10.0-20.0); Blood Urea Nitrogen 13 mg/dL (9-23); Glucose 124 mg/dL (74-106)
[2024-07-06 07:28] LABS: Lipase 43 U/L (12-53)
[2024-07-06 08:05] VITALS: BP 144/79; PULSE 53; RESP 18; TEMP 97.7; O2SAT 96
[2024-07-06] MEDS: KETOROLAC TROMETH 30 MG/ML 1ML VIAL IV ONE (08:09)
[2024-07-06] MEDS: SODIUM CHLORIDE 0.9% 1,000 ML IVB ONE (08:09)
[2024-07-06] MEDS: ONDANSETRON ODT 4 MG TAB PO ONE (08:09)
[2024-07-06] MEDS: SODIUM CHLORIDE 0.9% 1,000 ML IV ONE (08:13)
--- NOTE | 2024-07-06 08:21 | DVH ---
CT ABDOMEN AND PELVIS WITHOUT CONTRAST CLINICAL HISTORY: stone TECHNIQUE: Multiple contiguous axial images of the abdomen and pelvis without intravenous contrast. T he images were reformatted degenerate coronal and sagittal reconstructions. All CT scans at this medical facility are performed using dose modulation techniques as appropriate t o a performed exam including the following:Automated exposure control was utilized; adjustment of the MA and/or KV according to patient size; and use of iterative reconstruction technique. Radiation Dose Information: CT Dose: CTDI volume is 20 mGy. Dose-length product is 1138 mGy*cm Comparison: None FINDINGS: Evaluation of the abdomen and pelvis is limited without intravenous contrast. There is no evidence of nephrolithiasis or hydronephrosis. There is no evidence of a ureteral calculu s or hydroureter. There are gallstones in the gallbladder. The liver, pancreas, adrenal glands, and spleen appear w ithin normal limits. There is no gross evidence of abdominal lymphadenopathy. There is no free fluid or free air. The stomach grossly appears unremarkable. The small and large bowel loops demonstrate normal caliber and distribution. A normal appearing appendix is seen in the right lower quadrant abdomen. There are scattered diverticula in the distal colon without evidence of acute diverticulitis. The abdominal aorta and IVC appear within normal limits. The bladder appears unremarkable for the degree of distention. Pelvic organ appears within normal robles its. There is no gross evidence of a pelvic mass. There is no free fluid collection. There is a smal l fat containing left inguinal hernia. There are several pulmonary nodules in the left lower lobe measuring up to 6 mm. There is no acute osseous abnormality. IMPRESSION: 1. There is no acute process in the abdomen and pelvis. 2. Cholelithiasis. 3. Several nonspecific pulmonary nodules in the left lower lobe measuring up to 6 mm. Further evaluat ion with dedicated CT chest is recommended. 4. Scattered diverticula in the distal colon without evidence of acute diverticulitis. HS:Y
[2024-07-06] MEDS ORDERED: PANT40TA2 PO (09:29)
[2024-07-06] MEDS ORDERED: IBU600T PO (09:29)
== END 2024-07-06 09:27 | disposition home or self-care (01) ==
LOC: ER 06:07
DX: R10.11 Right upper quadrant pain (principal); K80.20 Calculus of gallbladder without cholecystitis without obstruction; R91.1 Solitary pulmonary nodule; I10 Essential (primary) hypertension; F17.210 Nicotine dependence, cigarettes, uncomplicated; F12.90 Cannabis use, unspecified, uncomplicated; Z79.899 Other long term (current) drug therapy
CPT/HCPCS: 36415; 74176; 80048; 81001; 83690; 85025; 96361; 96374; 99285; J1885; J7030; Q0162

== ENCOUNTER 2024-11-24 06:36 | Outpatient (CLI) | payer BC ==
[~2024-11-24 06:36] MED LIST changes: +IBU600T PO; +PANT40TA2 PO
[2024-11-24 07:36] LABS: HDL Cholesterol 47 mg/dL (40-59)
[2024-11-24 07:37] LABS: Cholesterol 217 mg/dL (< 200); Triglycerides 232 mg/dL (< 150)
== END 2024-11-24 17:00 | disposition home or self-care (01) ==
LOC: LAB 06:36
PROVIDERS: ATTEND Nurse Practitioner Family
DX: E78.5 Hyperlipidemia, unspecified (principal)
CPT/HCPCS: 36415; 80061